=== PATIENT | male | born 1990 | race Hispanic/Latino ===

== ENCOUNTER 2022-11-10 12:55 | Emergency (ER) | payer MEDICAID, OTHER ==
[~2022-11-10] VITALS: Ht 185.4 cm; Wt 102.1 kg
[2022-11-10] MEDS ORDERED: MORPHINE 4 MG SYG ONE (13:04)
[2022-11-10 13:13] LABS: MEAN CORPUSCULAR HEMOGLOBIN 26.8 pg (27.0-33.0); MEAN CORPUSCULAR HGB CONC 32.4 g/dL (32.0-36.0); MEAN CORPUSCULAR VOLUME 82.7 fL (79-99); RED BLOOD CELL COUNT(AUTO) 5.08 MIL/uL (4.50-6.20); RED CELL DISTRIBUTION WIDTH 14.6 % (11.0-15.5)
[2022-11-10 13:24] LABS: POTASSIUM 3.2 mmol/L (3.5-5.1)
[2022-11-10 13:28] LABS: INR 0.93 (0.85-1.15); PROTHROMBIN TIME 10.3 SEC (9.6-11.6)
[2022-11-10 13:30] LABS: ALBUMIN 3.7 g/dL (3.5-5.0); PARTIAL THROMBOPLASTIN TIME 25.6 SEC (26.3-35.5); TOTAL PROTEIN, SERUM 7.7 g/dL (6.0-8.3)
[2022-11-10] MEDS ORDERED: CEFAZOLIN SODIUM 2 GM VIAL IVPB ONE (13:30)
[2022-11-10] MEDS ORDERED: 0.9%NACL 1000ML 1,000 ML IV ONE (13:30)
[2022-11-10] MEDS ORDERED: ONDANSETRON 4MG INJ IVP ONE (13:30)
[2022-11-10] MEDS ORDERED: MORPHINE 8MG VIAL IVP ONE (13:30)
[2022-11-10] MEDS ORDERED: HYDROMORPHONE 1 MG INJ IVP ONE (14:30)
[2022-11-10] MEDS ORDERED: GENTAMICIN PROTOCOL PER PHARMACY IV SCH (17:00)
[2022-11-10 17:56] VITALS: BP 153/103
== END 2022-11-10 18:00 | disposition short-term general hospital (02) ==
LOC: EDH 12:55
DX: S62.638B Displaced fracture of distal phalanx of other finger, initial encounter for open fracture (principal); W23.0XXA Caught, crushed, jammed, or pinched between moving objects, initial encounter; Y93.89 Activity, other specified; Y92.89 Other specified places as the place of occurrence of the external cause; Y99.8 Other external cause status
CPT/HCPCS: 99285; 96365; 96375; 80053; 85027; 85610; 85730; 86850; 86900; 86901; 36415; 73130; J2270 ×2; J1170; J7030; J2405; J0690